=== PATIENT | male | born 1995 | race Caucasian/White ===

== ENCOUNTER 2017-12-15 18:20 | Emergency (ER) | payer OTHER ==
[~2017-12-15] VITALS: Ht 175.3 cm; Wt 78.0 kg
[2017-12-15 18:27] VITALS: BP 137/80; PULSE 87; RESP 16; TEMP 98.8; O2SAT 98
--- NOTE | 2017-12-15 20:11 | PD ---
HPI Chief Complaint: Exposure to Blood/Body Fluids Time Seen by Provider: 20:11 Travel History International Travel<30 days: No Contact w/Intl Traveler<30days: No Traveled to known affect area: No History of Present Illness HPI 22-year-old male came to the emergency room for needlestick exposure. Patient says he is vacationing here [place] when he stepped on an exposed needle attached to a hypodermic syringe. Patient does not recall his last tetanus shot. This happened half an hour prior to coming to the emergency room. He is otherwise a healthy person. It was his left foot that was involved. No significant pain from the puncture wound itself. His main concern is HIV exposure. [facility] Past Medical History Narrative Medical List of his past medical, surgical, social and family history is reviewed from the nursing note. Medical History: Denies Significant Hx Diminished Hearing: No Immunizations Current: Yes Tetanus Vaccination: Unknown Influenza Vaccination: No Past Surgical History Oral Surgery: Yes (WISDOM TEETH) Social History Alcohol Use: Yes Tobacco Use: No Substance Use: No Allergies-Medications (Allergen,Severity, Reaction): Coded Allergies: No Known Allergies (Unverified , 12/15/17) Comments No known drug allergies. Reported Meds & Prescriptions Reported Meds & Active Scripts Active Zofran Odt (Ondansetron Odt) 4 Mg Tab 4 Mg SL Q6HR PRN Kaletra (Lopinavir/Ritonavir) 200-50 Mg Tab 2 Tab PO Q12HR Fill this prescription for a 23 day supply of Kaletra ONLY if advised to do so by either [facility] OR the Emergency Department. Retrovir (Zidovudine) 100 Mg Cap 300 Mg PO Q12HR *Fill this 5 day prescription first and begin taking Retrovir 12 hours after the first dose received in the Emergency Department as prescribed.* Epivir (Lamivudine) 150 Mg Tab 150 Mg PO BID *Fill this prescription for a 23 day supply of Epivir ONLY if advised to do so by either [facility] OR the Emergency Department.* Kaletra (Lopinavir/Ritonavir) 200-50 Mg Tab 2 Tab PO Q12HR Fill this 5 day prescription first & begin taking Kaletra 12 hours after the first dose received in the Emergency Department as prescribed. Retrovir (Zidovudine) 100 Mg Cap 300 Mg PO Q12HR *Fill this 5 day prescription first and begin taking Retrovir 12 hours after the first dose received in the Emergency Department as prescribed.* Epivir (Lamivudine) 150 Mg Tab 150 Mg PO BID *Fill this 5 day prescription first and begin taking Epivir 12 hours after the first dose received in the Emergency Department as prescribed.* Narrative Medication List of his home medications reviewed from the nursing note. Review of Systems Except as stated in HPI: all other systems reviewed are Neg Physical Exam Narrative GENERAL: Awake, alert, no obvious distress SKIN: Focused skin assessment warm/dry. No puncture wound that can be seen on the bottom of the foot. HEAD: Atraumatic. Normocephalic. EYES: Pupils equal and round. No scleral icterus. No injection or drainage. ENT: No nasal bleeding or discharge. Mucous membranes pink and moist. NECK: Trachea midline. No JVD. CARDIOVASCULAR: Regular rate and rhythm. No murmur appreciated. RESPIRATORY: No accessory muscle use. Clear to auscultation. Breath sounds equal bilaterally. GASTROINTESTINAL: Abdomen soft, non-tender, nondistended. Hepatic and splenic margins not palpable. MUSCULOSKELETAL: No obvious deformities. No clubbing. No cyanosis. No edema. NEUROLOGICAL: Awake and alert. No obvious cranial nerve deficits. Motor grossly within normal limits. Normal speech. PSYCHIATRIC: Appropriate mood and affect; insight and judgment normal. Data Data Last Documented VS Vital Signs Date Time Temp Pulse Resp B/P (MAP) Pulse Ox O2 Delivery O2 Flow Rate FiO2 12/15/17 18:27 98.8 87 16 137/80 (99) 98 Orders Orders Lamivudine (Epivir) (12/15/17 20:30) Zidovudine (Retrovir) (12/15/17 20:30) Lopinavir-Ritonavir 200-50 Mg (Kaletra 2 (12/15/17 20:30) Complete Blood Count With Diff (12/15/17 20:28) Comprehensive Metabolic Panel (12/15/17 20:28) Hiv 1 Proviral (12/15/17 20:28) Hepatitis Profile (12/15/17 20:28) Tetanus/Diphtheria Tox Adult (Tetanus/Di (12/15/17 21:00) Ed Discharge Order (12/15/17 22:10) Labs Laboratory Tests Test 12/15/17 20:50 White Blood Count 7.5 TH/MM3 Red Blood Count 5.79 MIL/MM3 Hemoglobin 18.0 GM/DL Hematocrit 51.6 % Mean Corpuscular Volume 89.0 FL Mean Corpuscular Hemoglobin 31.0 PG Mean Corpuscular Hemoglobin Concent 34.8 % Red Cell Distribution Width 12.7 % Platelet Count 229 TH/MM3 Mean Platelet Volume 8.2 FL Neutrophils (%) (Auto) 65.2 % Lymphocytes (%) (Auto) 23.2 % Monocytes (%) (Auto) 10.5 % Eosinophils (%) (Auto) 0.6 % Basophils (%) (Auto) 0.5 % Neutrophils # (Auto) 4.9 TH/MM3 Lymphocytes # (Auto) 1.7 TH/MM3 Monocytes # (Auto) 0.8 TH/MM3 Eosinophils # (Auto) 0.0 TH/MM3 Basophils # (Auto) 0.0 TH/MM3 CBC Comment DIFF FINAL Differential Comment Blood Urea Nitrogen 10 MG/DL Creatinine 1.10 MG/DL Random Glucose 83 MG/DL Total Protein 8.0 GM/DL Albumin 4.7 GM/DL Calcium Level 9.1 MG/DL Alkaline Phosphatase 84 U/L Aspartate Amino Transf (AST/SGOT) 22 U/L Alanine Aminotransferase (ALT/SGPT) 23 U/L Total Bilirubin 1.8 MG/DL Sodium Level 141 MEQ/L Potassium Level 3.7 MEQ/L Chloride Level 104 MEQ/L Carbon Dioxide Level 27.2 MEQ/L Anion Gap 10 MEQ/L Estimat Glomerular Filtration Rate 84 ML/MIN Hepatitis A IgM Antibody NONREACTIVE Hepatitis B Surface Antigen NONREACTIVE Hepatitis B Core IgM Antibody NONREACTIVE Hepatitis C IgG Antibody NONREACTIVE MDM Medical Decision Making Medical Screen Exam Complete: Yes Emergency Medical Condition: Yes Medical Record Reviewed: Yes Differential Diagnosis Needlestick exposure Narrative Course 9:15 PM patient consented to HIV test and postexposure prophylaxis which has been started. Awaiting for CBC and CMP to be resulted. Patient did not recall his last tetanus shot in 1 will be given to him as well. Procedures EKG Prior to Arrival: No Diagnosis Primary Impression: Needlestick injury accident with exposure to body fluid Referrals: Primary Care Physician Additional Instructions: Take the medications given to you as per the prescription direction. Some of these medications will make him nauseous. He is a nausea medicine as needed. You should have a repeat blood test done in 4-6 weeks. This can be done by your primary care or Department of Health. Med/Other Pt SpecificInfo: Prescription(s) given Scripts Ondansetron Odt (Zofran Odt) 4 Mg Tab 4 MG SL Q6HR Y for Nausea/Vomiting, #20 TAB 0 Refills Prov: Jewels Valenzuela MD 12/15/17 Lopinavir-Ritonavir (Kaletra) 200-50 Mg Tab 2 TAB PO Q12HR for Mgmt Viral Infection, #92 TAB 0 Refills Fill this prescription for a 23 day supply of Kaletra ONLY if advised to do so by either [facility] OR the Emergency Department. Prov: Jewels Valenzuela MD 12/15/17 Zidovudine (Retrovir) 100 Mg Cap 300 MG PO Q12HR for Mgmt Viral Infection, #27 CAP 0 Refills *Fill this 5 day prescription first and begin taking Retrovir 12 hours after the first dose received in the Emergency Department as prescribed.* Prov: Jewels Valenzuela MD 12/15/17 Lamivudine (Epivir) 150 Mg Tab 150 MG PO BID for Mgmt Viral Infection, #46 TAB 0 Refills *Fill this prescription for a 23 day supply of Epivir ONLY if advised to do so by either [facility] OR the Emergency Department.* Prov: Jewels Valenzuela MD 12/15/17 Lopinavir-Ritonavir (Kaletra) 200-50 Mg Tab 2 TAB PO Q12HR for Mgmt Viral Infection, #18 TAB 0 Refills Fill this 5 day prescription first & begin taking Kaletra 12 hours after the first dose received in the Emergency Department as prescribed. Prov: Jewels Valenzuela MD 12/15/17 Zidovudine (Retrovir) 100 Mg Cap 300 MG PO Q12HR for Mgmt Viral Infection, #27 CAP 0 Refills *Fill this 5 day prescription first and begin taking Retrovir 12 hours after the first dose received in the Emergency Department as prescribed.* Prov: Jewels Valenzuela MD 12/15/17 Lamivudine (Epivir) 150 Mg Tab 150 MG PO BID for Mgmt Viral Infection, #9 TAB 0 Refills *Fill this 5 day prescription first and begin taking Epivir 12 hours after the first dose received in the Emergency Department as prescribed.* Prov: Jewels Valenzuela MD 12/15/17 Disposition: 01 DISCHARGE HOME Condition: Stable Jewels Valenzuela MD December 15, 2017 20:11
[2017-12-15] MEDS ORDERED: LAMI150 PO (20:28)
[2017-12-15] MEDS ORDERED: KALETRA200 PO (20:28)
[2017-12-15] MEDS ORDERED: RETR100C PO (20:28)
[2017-12-15] MEDS ORDERED: ZIDOVUDINE 100 MG CAP PO ONE (20:30)
[2017-12-15] MEDS ORDERED: LOPINAVIR/RITONAVIR 200 MG/50 MG TAB PO ONE (20:30)
[2017-12-15] MEDS ORDERED: TETANUS/DIPHTHERIA TOXOID ADULT 0.5 ML VIAL IM ONE (21:00)
[2017-12-15 21:38] LABS: AUTOMATED NEUTROPHIL # 4.9 TH/MM3 (1.8-7.7); BASOPHIL % 0.5 % (0.0-2.0); EOSINOPHIL % 0.6 % (0.0-4.0); HEMATOCRIT 51.6 % (39.0-51.0); LYMPH % 23.2 % (9.0-44.0); LYMPHOCYTE # 1.7 TH/MM3 (1.0-4.8); MEAN CORPUSCULAR HGB CONC 34.8 % (32.0-36.0); MEAN PLATELET VOLUME 8.2 FL (7.0-11.0); MONO % 10.5 % (0.0-8.0); MONOCYTE # 0.8 TH/MM3 (0-0.9); NEUT % 65.2 % (16.0-70.0); PLATELET COUNT 229 TH/MM3 (150-450); RED BLOOD COUNT 5.79 MIL/MM3 (4.50-5.90); RED CELL DISTRIBUTION WIDTH 12.7 % (11.6-17.2); WHITE BLOOD COUNT 7.5 TH/MM3 (4.0-11.0)
[2017-12-15 21:43] LABS: ALBUMIN 4.7 GM/DL (3.4-5.0); AST (GOT) 22 U/L (15-37); BICARBONATE 27.2 MEQ/L (21.0-32.0); BLOOD UREA NITROGEN 10 MG/DL (7-18); CALCIUM 9.1 MG/DL (8.5-10.1); CHLORIDE 104 MEQ/L (98-107); GLOMERULAR FILTRATION RATE 84 ML/MIN (>89); GLUCOSE,RANDOM 83 MG/DL (74-106); SODIUM (NA) 141 MEQ/L (136-145)
[2017-12-15] MEDS ORDERED: ZOFR4TAB3 SL (21:47)
[2017-12-15 21:48] LABS: ALKALINE PHOSPHATASE 84 U/L (45-117); ALT (GPT) 23 U/L (12-78); TOTAL BILIRUBIN ADULT 1.8 MG/DL (0.2-1.0)
== END 2017-12-15 22:46 | disposition home or self-care (01) ==
LOC: NEPD 18:20
DX: T14.90XA Injury, unspecified, initial encounter (principal); W46.1XXA Contact with contaminated hypodermic needle, initial encounter; Y93.01 Activity, walking, marching and hiking; Y92.832 Beach as the place of occurrence of the external cause; Z23 Encounter for immunization
CPT/HCPCS: 80053; 80074; 85025; 87535; 90471; 90714